=== PATIENT | male | born 1985 | race Caucasian/White ===

== ENCOUNTER 2020-05-05 15:41 | Emergency (ER) | payer BC ==
--- NOTE | 2020-05-06 00:20 | EDM.PDOC ---
ED HPI GENERAL MEDICAL PROBLEM - General Chief Complaint: Lower Extremity Injury/Pain Stated Complaint: FISH HOOK IN R FOOT Time Seen by Provider: 05/05/20 16:20 Source of Information: Reports: Patient History Limitations: Reports: No Limitations - History of Present Illness INITIAL COMMENTS - FREE TEXT/NARRATIVE: Pt. sustained a fish hook embedded in top of R foot. His tetanus is up to date. Denies any injury elsewhere. Onset: Today Onset Date: 05/05/20 Location: Reports: Lower Extremity, Right - Related Data Allergies Allergy/AdvReac Type Severity Reaction Status Date / Time No Known Allergies Allergy Verified 05/05/20 16:28 Home Meds: Home Meds . [No Known Home Meds] 05/05/20 [History] Past Medical History - Past Health History Medical/Surgical History: Denies Medical/Surgical History Social & Family History - Tobacco Use Smoking Status *Q: Unknown Ever Smoked Review of Systems - Review of Systems Review Of Systems: Comprehensive ROS is negative, except as noted in HPI. ED EXAM, GENERAL - Physical Exam Exam: See Below Exam Limited By: No Limitations General Appearance: Alert, WD/WN, No Apparent Distress Extremities: Other (2 barbs or treble hook embedded in top of R foot.) ED TRAUMA EXTREMITY PROCEDURES - Foreign Body Removal Indication:: See above Consent Obtained: Patient Performing Doctor:: Danie Whyte Foreign Body Other Location Comment:: Top of R foot Anesthesia Type: Local Comments:: Shank of the hook was cut. Area was cleansed with chlorhexidine. Using sterile technique, the hook barbs were pushed through the skin. Skin was then cleansed with NS and chlorhexidine. Pt. tolerated this well. Course - Vital Signs Last Recorded V/S: Last Vital Signs Temp 36.9 C 05/05/20 16:15 Pulse 61 05/05/20 16:15 Resp 14 05/05/20 16:15 BP 108/69 05/05/20 16:15 Pulse Ox 99 05/05/20 16:15 - Orders/Labs/Meds Meds: Medications Discontinued Medications Generic Name Dose Route Start Last Admin Trade Name Freq PRN Reason Stop Dose Admin Lidocaine HCl 5 ml 05/05/20 16:17 05/05/20 16:25 Xylocaine-Mpf 1% INJECT 05/05/20 16:18 5 ml ONETIME ONE Administration Departure - Departure Time of Disposition: 17:15 Disposition: Home, Self-Care 01 Clinical Impression: Foreign body (FB) in soft tissue - Discharge Information Instructions: Hand or Foot Foreign Body, Adult Referrals: PCP,None [Primary Care Provider] - Forms: ED Department Discharge Additional Instructions: Keep dry for 48 hours. You can wash the foot, but do no submerge especially in gee water. Elevate foot. minimize physical activity today. Tylenol and ibuprofen for pain. Return to ER of follow-up in clinic if redness, swelling, or discharge from the area. Sepsis Event Note (ED) - Evaluation Sepsis Screening Result: No Definite Risk - Focused Exam Vital Signs: Vital Signs Temp Pulse Resp BP Pulse Ox 05/05/20 16:15 36.9 C 61 14 108/69 99 - Problem List Review Problem List Initiated/Reviewed/Updated: Yes - Assessment/Plan Plan: Keep dry for 48 hours. You can wash the foot, but do no submerge especially in gee water. Elevate foot. minimize physical activity today. Tylenol and ibuprofen for pain. Return to ER of follow-up in clinic if redness, swelling, or discharge from the area.
== END 2020-05-05 16:39 | disposition home or self-care (01) ==
LOC: VM.ED 15:41
DX: S90.851A Superficial foreign body, right foot, initial encounter (principal); W45.8XXA Other foreign body or object entering through skin, initial encounter
CPT/HCPCS: 28190; 99282-25; 99283-GF; J2001